=== PATIENT | female | born 1980 | race Caucasian/White ===

== ENCOUNTER → 2017-02-01 | Outpatient (REF) | payer BC | LOC: M LAB REF 13:07 | PROVIDERS: ATTEND Family Medicine | DX: Z12.4 Encounter for screening for malignant neoplasm of cervix (principal) | CPT/HCPCS: 87070; G0123 ==

== ENCOUNTER → 2018-01-11 | Outpatient (REF) | payer BC ==
[2018-01-14 00:06] LABS: BORDETELLA PARAPERTUSSIS PCR Negative (Negative); BORDETELLA PERTUSSIS BY PCR Negative (Negative)
== END ==
LOC: M SFHCLERA 19:46
DX: R05 Cough (principal)
CPT/HCPCS: 87798

== ENCOUNTER → 2018-01-11 | Outpatient (CLI) | payer BC | LOC: M LRY 11:52 | DX: R05 Cough (principal) | CPT/HCPCS: 71046 ==

== ENCOUNTER → 2019-02-01 | Outpatient (REF) | payer BC | LOC: M SFHCLERA 14:25 | PROVIDERS: ATTEND Physician Assistant | DX: R30.0 Dysuria (principal) ==

== ENCOUNTER → 2019-09-23 | Outpatient (CLI) | payer BC ==
[2019-09-23 10:12] LABS: BASO # 0.1 10^3/uL (0.0-0.2); BASO % 0.6 % (0.0-1.0); HEMATOCRIT 42.4 % (36.0-47.0); HEMOGLOBIN 13.9 g/dl (12.0-15.5); LYMPH % 24.5 % (24.0-44.0); MEAN CORPUSCULAR HEMOGLOBIN 29.8 pg (27.0-33.0); MEAN CORPUSCULAR HGB CONC 32.8 g/dl (32.0-36.5); MONO # 0.5 10^3/uL (0.0-0.8); MONO % 5.8 % (0.0-5.0); NEUTROPHILS # 5.7 10^3/uL (1.5-8.5); NEUTROPHILS % 68.9 % (36.0-66.0); PLATELET COUNT, AUTOMATED 267 10^3/uL (150-450); RED BLOOD COUNT 4.66 10^6/uL (4.00-5.40); WHITE BLOOD COUNT 8.3 10^3/uL (4.0-10.0)
[2019-09-23 10:46] LABS: ALBUMIN 3.5 GM/DL (3.2-5.2); ALT/SGPT 18 U/L (12-78); BILIRUBIN,TOTAL 0.5 MG/DL (0.2-1.0); BLOOD UREA NITROGEN 12 MG/DL (7-18); CALCIUM LEVEL 8.5 MG/DL (8.5-10.1); CARBON DIOXIDE LEVEL 28 MEQ/L (21-32); CHLORIDE LEVEL 110 MEQ/L (98-107); CHOLESTEROL LEVEL 167 MG/DL (<200); CHOLESTEROL RISK RATIO 4.282 (<5); CREATININE FOR GFR 0.74 MG/DL (0.55-1.30); GLOMERULAR FILTRATION RATE > 60.0 (>60); GLUCOSE, FASTING 80 MG/DL (70-100); HDL CHOLESTEROL 39 MG/DL (>40); LDL CHOLESTEROL 107 MG/DL (<100); NON-HDL-C 128 MG/DL; POTASSIUM SERUM 4.3 MEQ/L (3.5-5.1); SODIUM LEVEL 143 MEQ/L (136-145); TOTAL PROTEIN 6.5 GM/DL (6.4-8.2); TRIGLYCERIDES LEVEL 103 MG/DL (<150)
== END ==
LOC: M LAB 09:12
PROVIDERS: ATTEND Physician Assistant
DX: R53.83 Other fatigue (principal)

== ENCOUNTER → 2020-03-04 | Outpatient (REF) | payer BC | LOC: M LAB REF 16:52 | PROVIDERS: ATTEND Physician Assistant Medical | DX: N39.0 Urinary tract infection, site not specified (principal) ==

== ENCOUNTER → 2020-09-15 | Outpatient (CLI) | payer BC | LOC: M LABSMTC 11:51 | PROVIDERS: ATTEND Anesthesiology | DX: Z01.818 Encounter for other preprocedural examination (principal); Z11.52 Encounter for screening for COVID-19 ==

== ENCOUNTER 2020-09-20 07:49 | Day surgery (SDC) | payer BC ==
[~2020-09-20] VITALS: Ht 172.7 cm; Wt 89.3 kg
[~2020-09-20 07:49] MED LIST: BUPR150T5; MIRE1IUD IU; MULT1TAB74 PO
[2020-09-20] MEDS ORDERED: DOXY-350 PO (07:50)
[2020-09-20] MEDS ORDERED: PERCOCET PO (07:50)
[2020-09-20] MEDS ORDERED: LR 1,000 ML IV ONE (08:55)
[2020-09-20] MEDS ORDERED: dexameTHASONE 4 MG/ML 1ML VIAL (J1100 PER 1MG) As Ordered ONE ×2 (10:08→11:19)
[2020-09-20] MEDS ORDERED: fentaNYL 100 MCG/2 ML INJECTION (J3010) As Ordered ONE (10:08)
[2020-09-20] MEDS ORDERED: propofoL 200 MG/20 ML VIAL As Ordered ONE (10:09)
[2020-09-20] MEDS ORDERED: ROCURONIUM BROMIDE 50 MG/5 ML VIAL As Ordered ONE (10:09)
[2020-09-20] MEDS ORDERED: LIDOCAINE 2% 100MG/5ML SDV (FOR ANES.) As Ordered ONE (10:11)
[2020-09-20] MEDS ORDERED: MIDAZOLAM INJ 2MG/2ML VIAL (J2250 PER 1MG) As Ordered ONE (10:15)
[2020-09-20] MEDS ORDERED: LIDOCAINE W/EPINEPHRINE 1% 20ML VIAL As Ordered ONE (10:28)
[2020-09-20] MEDS ORDERED: METHYLENE BLUE 0.5% (5MG/ML) 10 ML AMP (PROVAYBLUE) As Ordered ONE (10:29)
[2020-09-20] MEDS ORDERED: OXYMETAZOLINE 0.05% NASAL SPRAY (AFRIN) As Ordered ONE (10:29)
[2020-09-20] MEDS ORDERED: ACETAMINOPHEN 1000MG 100ML IV BTL (OFIRMEV) (J0131 PER 10MG) As Ordered ONE (11:13)
[2020-09-20] MEDS ORDERED: PHENYLephrine 500MCG 5ML (100MCG/ML) SYRINGE As Ordered ONE (11:23)
[2020-09-20] MEDS ORDERED: SUGAMMADEX SODIUM 500 MG/5 ML VIAL (BRIDION) As Ordered ONE (11:33)
[2020-09-20] MEDS ORDERED: ONDANSETRON 4MG/2ML VIAL As Ordered ONE (11:37)
[2020-09-20] MEDS ORDERED: oxyCODONE 5MG TAB PO PRN (12:20)
[2020-09-20] MEDS ORDERED: LR 1,000 ML IV SCH (12:20)
[2020-09-20] MEDS ORDERED: ONDANSETRON 4MG/2ML VIAL IV PRN (12:20)
[2020-09-20] MEDS ORDERED: fentaNYL 100 MCG/2 ML INJECTION (J3010) IV PRN (12:20)
[2020-09-20] MEDS ORDERED: PERCOCET 5MG/325MG TAB PO PRN (12:25)
[2020-09-20] MEDS ORDERED: IBUPROFEN 800 MG TAB PO PRN (12:25)
[2020-09-20 12:50] VITALS: BP 106/67
--- NOTE | 2020-09-21 10:23 | RO ---
OPERATIVE NOTE DATE OF OPERATION: 09/20/2020 PREOPERATIVE DIAGNOSES: 1. Deviated septum. 2. Chronic rhinitis. POSTOPERATIVE DIAGNOSES: 1. Deviated septum. 2. Chronic rhinitis. PROCEDURE: Septoplasty and partial reduction of inferior turbinates. SURGEON: Dann Garcia M.D. VEGETABLES COOK: None. ANESTHESIA: General endotracheal. INDICATIONS FOR PROCEDURE: This is a 40-year-old with a long history of nasal obstruction thought to be a combination of septal deviation, hypertrophic turbinates, and just a generalized very narrow nose. DESCRIPTION OF PROCEDURE: Satisfactory general endotracheal anesthesia was administered. Pharyngeal pack placed and the nose prepared for surgery by placing cotton-soaked pledgets with Afrin solution to the nasal cavity bilaterally. 1% Xylocaine with 1:100,000 epinephrine was used to inject into the nasal septum and inferior turbinates. A Juni incision was made on the left side of the nose. A mucoperichondrial flap and envelope was created on the left side of the nasal septum and carried down to the junction of the bony and cartilaginous septum. This was then with an elevator, and an envelope was then created on the right side of the septum. Carlie scissors were used to make a cut high in the perpendicular plate in the midportion of the vomer, and a central segment of the bony septum was resected. Next, with the round knife on the [place] elevator, a strip of cartilage was resected from the floor of the nose, mobilizing the quadrilateral cartilage and creating a swinging door. Then, a central segment of the cartilaginous septum was resected, preserving a 1 cm dorsal and caudal strut. Double-action rongeur was used to take down deflected portions of the perpendicular plate, as well. Finally, the maxillary crest spur was taken down after elevating mucoperiostium off both sides of it with a chisel. A segment of the resected cartilage was morselized and placed back into the septal envelop. The incision was closed using an interrupted #5-0 chromic suture. Then, a #4-0 plain suture was placed in a hkov-[id number] fashion through the two leaves of mucoperichondrium to appose them. Next, turbinate surgery done. She had markedly hypertrophic turbinates. They were medially infractured and using the turbinate Coblator probe, two parallel passes of the probe were made with 10 second coblation times for each of the set points of the probe. Finally, suction cautery used to coagulate the posterior inferior tip of the inferior turbinate. A #15 blade was used to make an incision on the anterior tip of the inferior turbinate. Amos splints were placed in the nose and sewn to the columellar with #2-0 Prolene suture. The pharyngeal pack was removed and the throat suctioned. The patient was awakened, extubated, and sent to recovery in satisfactory condition. She will be discharged home on Tylox for pain and doxycycline 100 mg b.i.d. She will be seen in the office in three days for splint removal.
== END 2020-09-20 13:26 | disposition home or self-care (01) ==
LOC: M SDC 07:49
PROVIDERS: ATTEND Specialist
DX: J34.2 Deviated nasal septum (principal); J31.0 Chronic rhinitis; F41.9 Anxiety disorder, unspecified; R51.9 Headache, unspecified; F17.210 Nicotine dependence, cigarettes, uncomplicated; Z79.899 Other long term (current) drug therapy; Z97.5 Presence of (intrauterine) contraceptive device
CPT/HCPCS: 30130; 30520; 81025; 88300; J0131; J1100; J2250; J2370; J2405; J3010; Q9968

== ENCOUNTER → 2021-11-30 | Outpatient (CLI) | payer BC ==
[~2021-11-30] MED LIST changes: +BUPR-71; -BUPR150T5; +DOXY-350 PO; +PERCOCET PO
[2021-11-30 09:47] LABS: BASO # 0.1 10^3/uL (0.0-0.2); BASO % 0.6 % (0.0-1.0); HEMATOCRIT 41.2 % (36.0-47.0); HEMOGLOBIN 13.6 g/dl (12.0-15.5); LYMPH # 2.1 10^3/uL (1.5-5.0); LYMPH % 20.8 % (24.0-44.0); MEAN CORPUSCULAR HEMOGLOBIN 29.6 pg (27.0-33.0); MEAN CORPUSCULAR VOLUME 89.6 fl (80.0-96.0); MONO # 0.6 10^3/uL (0.0-0.8); MONO % 6.1 % (2.0-8.0); NEUTROPHILS # 7.4 10^3/uL (1.5-8.5); NEUTROPHILS % 72.1 % (36.0-66.0); PLATELET COUNT, AUTOMATED 279 10^3/uL (150-450); WHITE BLOOD COUNT 10.2 10^3/uL (4.0-10.0)
[2021-11-30 10:37] LABS: ALBUMIN 3.5 GM/DL (3.2-5.2); ALT/SGPT 15 U/L (12-78); BILIRUBIN,TOTAL 0.5 MG/DL (0.2-1.0); BLOOD UREA NITROGEN 15 MG/DL (7-18); CALCIUM LEVEL 8.9 MG/DL (8.5-10.1); CARBON DIOXIDE LEVEL 28 MEQ/L (21-32); CHLORIDE LEVEL 107 MEQ/L (98-107); CHOLESTEROL LEVEL 183 MG/DL (<200); CHOLESTEROL RISK RATIO 3.978 (<5); CREATININE FOR GFR 0.88 MG/DL (0.55-1.30); GLOMERULAR FILTRATION RATE > 60.0 (>58); GLUCOSE, FASTING 81 MG/DL (70-100); HDL CHOLESTEROL 46 MG/DL (>40); LDL CHOLESTEROL 115 MG/DL (<100); NON-HDL-C 137 MG/DL; POTASSIUM SERUM 4.3 MEQ/L (3.5-5.1); SODIUM LEVEL 136 MEQ/L (136-145); TOTAL PROTEIN 6.6 GM/DL (6.4-8.2); TRIGLYCERIDES LEVEL 110 MG/DL (<150)
== END ==
LOC: M LAB 08:42
PROVIDERS: ATTEND Family Medicine
DX: Z00.00 Encounter for general adult medical examination without abnormal findings (principal)

== ENCOUNTER → 2021-12-17 | Outpatient (REF) | payer BC | LOC: M WUC 19:14 | PROVIDERS: ATTEND Physician Assistant | DX: J02.9 Acute pharyngitis, unspecified (principal) ==

== ENCOUNTER → 2022-01-05 | Outpatient (CLI) | payer BC | LOC: M WHC 09:10 | PROVIDERS: ATTEND Family Medicine | DX: Z12.31 Encounter for screening mammogram for malignant neoplasm of breast (principal) ==

== ENCOUNTER → 2022-01-31 | Outpatient (REF) | payer BC | LOC: M LAB REF 17:22 | PROVIDERS: ATTEND Family Medicine | DX: Z01.419 Encounter for gynecological examination (general) (routine) without abnormal findings (principal); Z12.4 Encounter for screening for malignant neoplasm of cervix ==

== ENCOUNTER → 2022-07-05 | Outpatient (REF) | payer BC ==
[~2022-07-05] MED LIST changes: -DOXY-350 PO; +DOXY-444 PO
== END ==
LOC: M LAB REF 18:02
PROVIDERS: ATTEND Nurse Practitioner Family
DX: N39.0 Urinary tract infection, site not specified (principal)

== ENCOUNTER → 2023-10-02 | Outpatient (CLI) | payer BC ==
[~2023-10-02] MED LIST changes: +DOXY-440 PO; -DOXY-444 PO
== END ==
LOC: M WHC 08:46
PROVIDERS: ATTEND Nurse Practitioner Family
DX: Z12.31 Encounter for screening mammogram for malignant neoplasm of breast (principal)

== ENCOUNTER → 2023-10-22 | Outpatient (REF) | payer BC ==
[2023-10-22 18:19] LABS: APPEARANCE, URINE MANUAL HAZY (CLEAR); COLOR, URINE MANUAL ORANGE (YELLOW)
[2023-10-22 18:24] LABS: SPECIFIC GRAVITY,URINE MANUAL 1.015 (1.002-1.035)
[2023-10-22 18:25] LABS: GLUCOSE, URINE (UA) MANUAL NEGATIVE (NEGATIVE); PROTEIN, URINE MANUAL NEGATIVE (NEGATIVE)
[2023-10-22 18:27] LABS: BILIRUBIN, URINE MANUAL NEGATIVE (NEGATIVE); LEUKOCYTE ESTERASE, URINE MAN POSITIVE (NEGATIVE); NITRITE, URINE MANUAL POSITIVE (NEGATIVE)
[2023-10-22 18:28] LABS: BLOOD URINE MANUAL POSITIVE (NEGATIVE)
[2023-10-22 18:30] LABS: KETONE, URINE MANUAL OBSCURED mg/dL (NEGATIVE); UROBILINOGEN, URINE MANUAL OBSCURED mg/dl (NORMAL)
[2023-10-22 18:32] LABS: BACTERIA, URINE LARGE AMOUNT; HYALINE CAST, URINE NONE SEEN /lpf (0-1); RBC, URINE 0-1 /hpf (0-3); SQUAMOUS EPITHELIAL CELL URINE SMALL AMOUNT /hpf (SMALL AMT)
== END ==
LOC: M LAB REF 17:19
PROVIDERS: ATTEND Nurse Practitioner Family
DX: N39.0 Urinary tract infection, site not specified (principal); R30.0 Dysuria

== ENCOUNTER → 2024-08-06 | Outpatient (REF) | payer BC | LOC: M LAB REF 16:43 | PROVIDERS: ATTEND Family Medicine | DX: Z30.433 Encounter for removal and reinsertion of intrauterine contraceptive device (principal) ==